=== PATIENT | female | born 1985 | race African-American/Black ===

== ENCOUNTER → 2020-02-29 07:08 | Outpatient (CLI) | payer OTHER, SELFPAY ==
[2020-02-29 08:30] LABS: Cholesterol 97 mg/dL (200); High Density Lipoprotein 43 mg/dL; Triglycerides 47 mg/dL; Very Low Density Lipoprotein 9 mg/dL (5-40)
[2020-02-29 08:52] LABS: HIV - WCH Non-Reactive (Nonreactive)
[2020-03-01 01:21] LABS: Rapid Plasmin Reagin (RPR) NONREACTIVE (NONREACTIVE)
[2020-03-01 05:07] LABS: HEPATITIS B SURFACE AG Negative (Negative); Hepatitis A IgM Antibody Negative (Negative); Hepatitis B Core AB IgM Negative (Negative)
[2020-03-01 05:36] LABS: Hep C Antibodies <0.1 s/co ratio (0.0-0.9)
== END ==
DX: Z00.00 Encounter for general adult medical examination without abnormal findings (principal); Z11.3 Encounter for screening for infections with a predominantly sexual mode of transmission; Z11.4 Encounter for screening for human immunodeficiency virus [HIV]
CPT/HCPCS: 36415; 80061; 80074; 86592; 86703